=== PATIENT | male | born 1930 | race Caucasian/White ===

== ENCOUNTER → 2016-03-06 | Outpatient (CLI) | payer MEDICARE, BC ==
--- NOTE | 2016-03-06 13:33 | US ---
EXAMINATION TYPE: US carotid duplex BILAT DATE OF EXAM: 03/06/2016 12:57 PM COMPARISON: NONE CLINICAL HISTORY: I63.9 Cerebral infarction. left sided weakness EXAM MEASUREMENTS: RIGHT: Peak Systolic Velocity (PSV) cm/sec ----- Right CCA: 93.8 ----- Right ICA: 90.1 ----- Right ECA: 94.2 ICA/CCA ratio: 0.9 RIGHT: End Diastole cm/sec ----- Right CCA: 16.8 ----- Right ICA: 21.7 ----- Right ECA: 9.18 LEFT: Peak Systolic Velocity (PSV) cm/sec ----- Left CCA: 92.6 ----- Left ICA: 112 ----- Left ECA: 87.0 ICA/CCA ratio: 1.2 LEFT: End Diastole cm/sec ----- Left CCA: 23.0 ----- Left ICA: 31.7 ----- Left ECA: 15.5 VERTEBRALS (direction of flow): Right Vertebral: Antegrade Left Vertebral: Antegrade TECHNOLOGIST IMPRESSION: Mild/moderate plaque noted bilateral bifurcations. No increased velocities. No significant stenosis IMPRESSION: 1. Intimal thickening is some atheromatous plaquing. Significant flow-limiting stenosis is not identi fied. Criteria for Assigning % of Stenosis / Diameter reduction (Estimation based on the indirect measurements of the internal carotid artery velocities (ICA PSV). 1. Normal (no stenosis)=ICA PSV < 125 cm/s: ratio < 2.0: ICA EDV<40 cm/s. 2. Less than 50% stenosis=ICA PSV < 125 cm/s: ratio < 2.0: ICA EDV<40 cm/s. 3. 50 to 69% stenosis=ICA PSV of 125 to 230 cm/s: ration 2.0 ? 4.0: ICA EDV 40-100 cm/s. 4. Greater than 70% stenosis to near occlusion= ICA PSV > 230 cm/s: ratio > 4.0: ICA EDV > 100 cm/s. 5. Near occlusion= ICA PSV velocities may be low or undetectable: variable ratio and ICA EDV. 6. Total occlusion=unable to detect flow.
== END | disposition home or self-care (01) ==
LOC: RADUSWWP 12:15
PROVIDERS: ATTEND Family Medicine
DX: I65.23 Occlusion and stenosis of bilateral carotid arteries (principal)
CPT/HCPCS: 93880

== ENCOUNTER 2016-03-07 14:43 | Inpatient (IN) | payer MEDICARE, BC ==
[2016-03-07 16:09] LABS: Glucose,Whole Blood 87 mg/dL (75-99)
--- NOTE | 2016-03-07 16:25 | ED ---
Weakness HPI - General Chief complaint: Weakness Stated complaint: TIA Symptoms. Sent by Dr Quintana Seen by Provider: 03/07/16 15:50 Source: patient, family, RN/MD, RN notes reviewed Mode of arrival: wheelchair - History of Present Illness Initial comments: This is a 86-year-old male with a history of lumbar surgery in January this past year also a recent cholecystectomy who was sent in for evaluation for left upper and lower extremity weakness which has been going on for up to 23 weeks. He denies any trauma fevers chills nausea vomiting sweats just a focal weakness. It was believed that he may have had a stroke. MD Complaint: focal weakness - Related Data Home Medications Medication Instructions Recorded Confirmed Gluc/Kt-MSM#1/C/Francisco/Adrian/Bor 1 tab PO BID 01/15/16 03/07/16 [Glucosamine-Chondroitin Tablet] L.acidoph,Paracasei, B.lactis 1 cap PO DAILY 01/15/16 03/07/16 [Probiotic] amLODIPine BESYLATE/BENAZEPRIL 1 cap PO BID 01/15/16 03/07/16 [Lotrel 5-10 mg Capsule] Acetaminophen Tab [Tylenol Tab] 1,000 mg PO BID PRN 03/07/16 03/07/16 Fish Oil/Dha/Epa [Fish Oil 1,200 1 cap PO DAILY 03/07/16 03/07/16 mg Fish Oil] Multivitamin [Men's Multi-Vitamin] 1 tab PO DAILY 03/07/16 03/07/16 Muscle Relaxer 1 tab PO HS PRN 03/07/16 03/07/16 Polyethylene Glycol 3350 [Miralax] 17 gm PO DAILY PRN 03/07/16 03/07/16 Previous Rx's Medication Instructions Recorded Melatonin 3 mg PO HS tablet 01/18/16 Allergies Allergy/AdvReac Type Severity Reaction Status Date / Time aspirin AdvReac Severe Unknown Verified 03/07/16 16:26 Review of Systems ROS Statement: Those systems with pertinent positive or pertinent negative responses have been documented in the HPI. ROS Other: All systems not noted in ROS Statement are negative. Past Medical History Past Medical History: Atrial Fibrillation, Cancer, Hypertension Additional Past Medical History / Comment(s): prostate cancer History of Any Multi-Drug Resistant Organisms: None Reported Past Surgical History: Back Surgery, Cholecystectomy, Hernia Repair, Orthopedic Surgery, Prostate Surgery Additional Past Surgical History / Comment(s): knee replacement, strangulated hernia repair, prostatectomy. laminectomy Past Anesthesia/Blood Transfusion Reactions: No Reported Reaction Past Psychological History: No Psychological Hx Reported Smoking Status: Never smoker Past Alcohol Use History: None Reported Past Drug Use History: None Reported General Exam - General Exam Comments Initial Comments: This is a well-developed well-nourished awake alert oriented 3 male Limitations: physical limitation General appearance: alert, in no apparent distress Head exam: Present: atraumatic, normocephalic, normal inspection Eye exam: Present: normal appearance, PERRL, EOMI. Absent: scleral icterus, conjunctival injection, periorbital swelling ENT exam: Present: normal exam, mucous membranes moist Neck exam: Present: normal inspection, other (No stridor JVD or bruits). Absent : tenderness, meningismus, lymphadenopathy Respiratory exam: Present: normal lung sounds bilaterally. Absent: respiratory distress, wheezes, rales, rhonchi, stridor Cardiovascular Exam: Present: regular rate, normal rhythm, normal heart sounds. Absent: systolic murmur, diastolic murmur, rubs, gallop, clicks GI/Abdominal exam: Present: soft, normal bowel sounds. Absent: distended, tenderness, guarding, rebound, rigid, bruit, pulsatile mass, hernia Rectal exam: Present: deferred Extremities exam: Present: normal inspection, normal capillary refill. Absent: full ROM, tenderness Back exam: Absent: tenderness, CVA tenderness (R), CVA tenderness (L) Neurological exam: Present: alert, oriented X3, CN II-XII intact, motor sensory deficit Psychiatric exam: Present: normal affect, normal mood Skin exam: Present: warm, dry, intact, normal color. Absent: rash Course Vital Signs 03/07/16 03/07/16 03/07/16 14:52 15:35 15:50 Temperature 96.9 F L Pulse Rate 69 68 66 Respiratory 18 20 20 Rate Blood Pressure 152/71 143/75 159/76 O2 Sat by Pulse 98 98 99 Oximetry EKG Findings - EKG Results: EKG: interpreted by ROSE, sinus rhythm (Sinus rhythm rate is 63 WA interval 264 QRS duration 162/QTC of 14/119 unifocal PVC is noted. Soom sinus arrhythmia first-degree AV block is noted) Medical Decision Making - Medical Decision Making I did discuss findings with patient family patient be admitted with consultation by neurology. The patient is not a candidate for TPA or interventional neurology at this time due to the remoteness of the onset of symptoms. - Lab Data Result diagrams: 03/07/16 16:10 Lab Results 03/07/16 03/07/16 03/07/16 Range/Units 16:07 16:10 16:10 WBC 7.6 (3.8-10.6) k/uL RBC 4.92 (4.30-5.90) m/uL Hgb 14.8 (13.0-17.5) gm/dL Hct 44.1 (39.0-53.0) % MCV 89.6 (80.0-100.0) fL MCH 30.2 (25.0-35.0) pg MCHC 33.7 (31.0-37.0) g/dL RDW 14.3 (11.5-15.5) % Plt Count 232 (150-450) k/uL Neutrophils % 69 % Lymphocytes % 22 % Monocytes % 6 % Eosinophils % 2 % Basophils % 1 % Neutrophils # 5.2 (1.3-7.7) k/uL Lymphocytes # 1.6 (1.0-4.8) k/uL Monocytes # 0.4 (0-1.0) k/uL Eosinophils # 0.2 (0-0.7) k/uL Basophils # 0.1 (0-0.2) k/uL PT (9.0-12.0) sec INR (<1.1) APTT (22.0-30.0) sec POC Glucose (mg/dL) 87 (75-99) mg/dL POC Glu Graduate Intern ID Peggy Rios Total Creatine Kinase 47 L (55-170) U/L CK-MB (CK-2) 1.5 (0.0-2.4) ng/mL CK-MB (CK-2) Rel Index 3.2 Troponin I <0.012 (0.000-0.034) ng/mL 03/07/16 Range/Units 16:10 WBC (3.8-10.6) k/uL RBC (4.30-5.90) m/uL Hgb (13.0-17.5) gm/dL Hct (39.0-53.0) % MCV (80.0-100.0) fL MCH (25.0-35.0) pg MCHC (31.0-37.0) g/dL RDW (11.5-15.5) % Plt Count (150-450) k/uL Neutrophils % % Lymphocytes % % Monocytes % % Eosinophils % % Basophils % % Neutrophils # (1.3-7.7) k/uL Lymphocytes # (1.0-4.8) k/uL Monocytes # (0-1.0) k/uL Eosinophils # (0-0.7) k/uL Basophils # (0-0.2) k/uL PT 10.8 (9.0-12.0) sec INR 1.1 (<1.1) APTT 24.9 (22.0-30.0) sec POC Glucose (mg/dL) (75-99) mg/dL POC Glu Graduate Intern ID Total Creatine Kinase (55-170) U/L CK-MB (CK-2) (0.0-2.4) ng/mL CK-MB (CK-2) Rel Index Troponin I (0.000-0.034) ng/mL - Radiology Data Radiology results: report reviewed (I did review the imaging and report evidence of a likely subacute vascular insult the right frontal lobe.), image reviewed Disposition Clinical Impression: CVA (cerebral vascular accident) Disposition: ADMITTED IP TO THIS HOSP Condition: Stable
[2016-03-07 16:28] LABS: Basophils # (A) 0.1 k/uL (0-0.2); Basophils % (A) 1 %; CH 30.3; Eosinophils # (A) 0.2 k/uL (0-0.7); Eosinophils % (A) 2 %; HCT 44.1 % (39.0-53.0); HDW 2.56; HGB 14.8 gm/dL (13.0-17.5); Luc # (Auto) 0.07; Luc % (Auto) 1; Lymphocytes # (A) 1.6 k/uL (1.0-4.8); Lymphocytes % (A) 22 %; MCH 30.2 pg (25.0-35.0); MCHC 33.7 g/dL (31.0-37.0); MCV 89.6 fL (80.0-100.0); Mean Platelet Volume 8.7; Monocytes # (A) 0.4 k/uL (0-1.0); Monocytes % (A) 6 %; Neutrophils # (A) 5.2 k/uL (1.3-7.7); Neutrophils % (A) 69 %; RBC 4.92 m/uL (4.30-5.90); RDW 14.3 % (11.5-15.5); WBC 7.6 k/uL (3.8-10.6)
[2016-03-07 16:38] LABS: INR 1.1 (<1.1); Partial Thromboplastin Time 24.9 sec (22.0-30.0); Prothrombin Time 10.8 sec (9.0-12.0)
[2016-03-07 16:42] LABS: Creatine Kinase 47 U/L (55-170)
--- NOTE | 2016-03-07 16:51 | CT ---
EXAMINATION TYPE: CT brain wo con DATE OF EXAM: 03/07/2016 4:40 PM COMPARISON: NONE HISTORY: 86-year-old male with generalized weakness TECHNIQUE: Examination was done in axial plane without intravenous contrast. Coronal and sagittal reconstructio ns performed. CT DLP: 1505.6 mGycm Automated exposure control for dose reduction was used. FINDINGS: There is mild generalized supratentorial volume loss. Prominent subcortical white matter hypodensity in the right frontal lobe. While this is a chronic appearance, there is slight asymmetric fullness of the right frontal gyri, for example, axial image 44. No cortical hypodensity is seen. Mild patchy pe riventricular white matter hypodensities suggest chronic small vessel ischemic disease. No evidence for acute intracranial hemorrhage. No loss of shepherd-white matter differentiation. No effac ement of basal subarachnoid cisterns. No evidence for mass, extra-axial fluid collection, or midline shift. No hydrocephalus. Paranasal sinuses and mastoid air cells are well pneumatized. Orbits and globes are intact. IMPRESSION: Extensive subcortical white matter hypodensity in the right frontal lobe is suspected to be chronic r elating to prior white matter infarct. However, given asymmetric sulcal effacement in this region, a subacute vascular insult here is difficult to entirely exclude. Clinically correlate. No evidence for acute intracranial hemorrhage.
[2016-03-07 16:53] LABS: Creatine Kinase MB 1.5 ng/mL (0.0-2.4); Troponin I <0.012 ng/mL (0.000-0.034)
--- NOTE | 2016-03-07 16:53 | XR ---
EXAMINATION TYPE: XR chest 2V DATE OF EXAM: 03/07/2016 4:41 PM COMPARISON: None HISTORY: 86-year-old male increasing left leg weakness for 3 weeks TECHNIQUE: Frontal and lateral views FINDINGS: Heart is upper limits of normal in size. Atherosclerotic arch calcifications. There is thoracic defor mity due to a marked dextroconvex scoliosis centered along the lower thoracic spine. No consolidation or pleural effusion seen. IMPRESSION: Marked dextroconvex scoliosis causing some deformity to the thorax. No acute process seen.
[2016-03-07] MEDS ORDERED: ACETAMINOPHEN TAB 500 MG TAB PO PRN (17:11)
[2016-03-07 17:43] LABS: ALT 33 U/L (21-72); AST 39 U/L (17-59); Alkaline Phosphatase 71 U/L (38-126); Anion Gap 11 mmol/L; Blood Urea Nitrogen 11 mg/dL (9-20); Calcium 9.7 mg/dL (8.4-10.2); Carbon Dioxide 25 mmol/L (22-30); Chloride 100 mmol/L (98-107); Glucose 91 mg/dL (74-99); Magnesium 2.1 mg/dL (1.6-2.3); Non-African American GFR(MDRD) >60 (>60 ml/min/1.73 sqM); Sodium 136 mmol/L (137-145); Total Bilirubin 1.1 mg/dL (0.2-1.3); Total Protein 7.5 g/dL (6.3-8.2)
[2016-03-07 17:46] LABS: Potassium 5.5 mmol/L (3.5-5.1)
[2016-03-07 17:48] LABS: Appearance,Urine Clear (Clear); Bilirubin,Urine Negative (Negative); Glucose,Urine (UA) Negative (Negative); Ketones,Urine Negative (Negative); Leukocyte Esterase,Urine Negative (Negative); Nitrite,Urine Negative (Negative); Protein,Urine Negative (Negative); Specific Gravity,Urine 1.004 (1.001-1.035); UA Billing (MACRO vs. MICRO) CHEM; Urobilinogen,Urine <2.0 mg/dL (<2.0)
[2016-03-07 21:08] VITALS: BMI 21.8
[2016-03-07] MEDS: LISINOPRIL 10 MG TAB PO SCH (21:18)
[2016-03-07] MEDS: MELATONIN 3 MG TABLET PO SCH (21:18)
[2016-03-07] MEDS: amLODIPine 5 MG TAB PO SCH (21:18)
[2016-03-07] MEDS: SODIUM CHLORIDE 0.9% 1,000 ML IV SCH (21:49)
[2016-03-08] MEDS: SODIUM CHLORIDE 0.9% 1,000 ML IV SCH ×3 (05:48→23:57)
[2016-03-08 06:46] LABS: Anion Gap 9 mmol/L; Blood Urea Nitrogen 9 mg/dL (9-20); Calcium 9.1 mg/dL (8.4-10.2); Carbon Dioxide 30 mmol/L (22-30); Chloride 101 mmol/L (98-107); Glucose 84 mg/dL (74-99); Non-African American GFR(MDRD) >60 (>60 ml/min/1.73 sqM); Potassium 4.1 mmol/L (3.5-5.1); Sodium 140 mmol/L (137-145)
[2016-03-08] MEDS ORDERED: NON-FORMULARY DRUG (Fish Oil/Dha/Epa [Fish Oil 1,200 Mg Fish Oil] 1 CAP) PO SCH (09:00)
[2016-03-08] MEDS: amLODIPine 5 MG TAB PO SCH ×2 (09:17→21:02)
[2016-03-08] MEDS: LISINOPRIL 10 MG TAB PO SCH ×2 (09:17→21:02)
[2016-03-08] MEDS: MULTIVITAMINS, THERA 1 EACH TAB PO SCH (09:17)
[2016-03-08] MEDS: POLYETHYLENE GLYCOL 3350 17 GM POWD.PACK PO PRN (09:38)
--- NOTE | 2016-03-08 11:46 | P.HPIM ---
History of Present Illness 86-year-old male was admitted with left-sided weakness onset 2-3 weeks ago. Patient had a recent lumbar laminectomy. Neurosurgeon noted left-sided weakness. Patient had a carotid studies done and shown to have no significant stenosis . Attempted MRI patient unable to be stabilized for MRI from kyphosis. CT the brain showed subacute vascular insult to the front lobe. Patient is awake and alert noted left arm left leg weakness positive drifts to left arm significant left leg weakness. Patient noted have lower extremity edema on venous Doppler will be ordered. 2-D echo ordered Review of Systems Ears, nose, mouth and throat: Reports sinus pressure Neurological: Reports weakness Past Medical History Past Medical History: Atrial Fibrillation, Cancer, Hypertension Additional Past Medical History / Comment(s): prostate cancer History of Any Multi-Drug Resistant Organisms: None Reported Past Surgical History: Back Surgery, Cholecystectomy, Hernia Repair, Orthopedic Surgery, Prostate Surgery Additional Past Surgical History / Comment(s): knee replacement, strangulated hernia repair, prostatectomy. laminectomy Past Anesthesia/Blood Transfusion Reactions: No Reported Reaction Past Psychological History: No Psychological Hx Reported Smoking Status: Never smoker Past Alcohol Use History: None Reported Past Drug Use History: None Reported Medications and Allergies Home Medications Medication Instructions Recorded Confirmed Type Gluc/Kt-MSM#1/C/Francisco/Adrian/Bor 1 tab PO BID 01/15/16 03/07/16 History [Glucosamine-Chondroitin Tablet] L.acidoph,Paracasei, B.lactis 1 cap PO DAILY 01/15/16 03/07/16 History [Probiotic] amLODIPine BESYLATE/BENAZEPRIL 1 cap PO BID 01/15/16 03/07/16 History [Lotrel 5-10 mg Capsule] Acetaminophen Tab [Tylenol Tab] 1,000 mg PO BID PRN 03/07/16 03/07/16 History Fish Oil/Dha/Epa [Fish Oil 1,200 1 cap PO DAILY 03/07/16 03/07/16 History mg Fish Oil] Multivitamin [Men's Multi-Vitamin] 1 tab PO DAILY 03/07/16 03/07/16 History Muscle Relaxer 1 tab PO HS PRN 03/07/16 03/07/16 History Polyethylene Glycol 3350 [Miralax] 17 gm PO DAILY PRN 03/07/16 03/07/16 History Allergies Allergy/AdvReac Type Severity Reaction Status Date / Time aspirin AdvReac Severe Unknown Verified 03/07/16 16:26 Physical Exam Vitals: Vital Signs Temp Pulse Pulse Resp BP BP Pulse Ox 03/08/16 09:38 97.2 F L 72 16 126/76 97 03/08/16 04:00 97.2 F L 63 17 134/70 97 03/08/16 00:00 97.1 F L 56 L 16 108/57 03/07/16 19:10 140/72 03/07/16 18:49 97.0 F L 73 18 178/86 97 03/07/16 18:39 98.0 F 76 18 158/94 98 03/07/16 18:19 71 143/83 99 03/07/16 17:19 62 16 170/76 Intake and Output 03/07/16 03/08/16 03/08/16 22:59 06:59 14:59 Intake Total 1600 Output Total 600 650 Balance -600 950 Intake: IV 800 Sodium Chloride 0.9% 1, 800 000 ml @ 100 mls/hr IV . Q10H ANA Rx#:[id number] Intake, IV Titration 800 Amount Sodium Chloride 0.9% 1, 800 000 ml @ 100 mls/hr IV . Q10H ANA Rx#:[id number] Output: Urine 600 650 Other: Voiding Method Urinal Urinal # Voids 2 Weight 75 kg 78.4 kg - Constitutional General appearance: average body habitus - EENT Eyes: PERRLA Ears: bilateral: normal - Neck Neck: normal ROM - Respiratory Respiratory: bilateral: CTA - Cardiovascular Rhythm: regular Abnormal Heart Sounds: systolic murmur leg Peripheral Edema: bilateral: 2+ - Gastrointestinal General gastrointestinal: soft - Integumentary Integumentary: normal - Neurologic Neurologic: CNII-XII intact - Musculoskeletal Musculoskeletal: left sided weakness - Psychiatric Psychiatric: A&O x's 3, appropriate affect, intact judgment & insight Results CBC & Chem 7: 03/07/16 16:10 03/08/16 05:59 Chest x-ray: report reviewed CT Scan - head: report reviewed Thrombosis Risk Factor Assmnt - Choose All That Apply Each Risk Factor Represents 3 Points: Age 75 years or older Other congenital or acquired thrombophilia - If yes, enter type in comment: No Thrombosis Risk Factor Assessment Total Risk Factor Score: 3 Thrombosis Risk Factor Assessment Level: Moderate Risk Assessment and Plan Plan: Assessment Subacute vascular insult right frontal lobe CVA Recent of lumbar laminectomy Recent cholecystectomy Left-sided weakness Leg edema History of atrial fib and first-degree AV block at this time History of prostate cancer Hypertension History of ulceration with aspirin use Plan Consultation with neurology 2-D echo and venous Doppler studies ordered
--- NOTE | 2016-03-08 11:55 | ECHOF ---
Referral Reason:cva MEASUREMENTS -------- HEIGHT: 185.4 cm WEIGHT: 78.0 kg BP: 134/70 RVIDd: 3.6 cm (< 3.3) IVSd: 1.3 cm (0.6 - 1.1) LVIDd: 3.5 cm (3.9 - 5.3) LVPWd: 1.2 cm (0.6 - 1.1) IVSs: 2.1 cm LVIDs: 2.5 cm LVPWs: 2.3 cm LA Diam: 3.8 cm (2.7 - 3.8) LAESV Index (A-L): 50.97 ml/m Ao Diam: 3.7 cm (2.0 - 3.7) AV Cusp: 1.0 cm (1.5 - 2.6) LA Diam: 3.5 cm (2.7 - 3.8) MV EXCURSION: 9.957 mm (> 18.000) MV EF SLOPE: 33 mm/s (70 - 150) EPSS: 1.4 cm MV E Chip: 0.71 m/s MV DecT: 312 ms MV A Chip: 0.94 m/s MV E/A Ratio: 0.76 RAP: 5.00 mmHg RVSP: 28.38 mmHg FINDINGS -------- Resting bradycardia (HR<60bpm). This was a technically good study. There is mild concentric left ventricular hypertrophy. Overall left ventricular systolic function is normal with, an EF between 55 - 60 %. The right ventricle is mildly enlarged. LA is severely dilated >40 ml/m2 The right atrium is normal in size. Aneurysmal Interatrial septum. Aortic valve is trileaflet and is moderately thickened. The mitral valve leaflets are mildly thickened. Mild mitral annular calcification present. Mild mitral regurgitation is present. Mild tricuspid regurgitation present. Right ventricular systolic pressure is normal at < 35 mmHg. The pulmonic valve was not well visualized. The aortic root size is normal. Normal inferior vena cava with normal inspiratory collapse consistent with estimated right atrial pressure of 5 mmHg. There is no pericardial effusion. CONCLUSIONS -------- 1. Resting bradycardia (HR<60bpm). 2. The mitral valve leaflets are mildly thickened. 3. Mild mitral annular calcification present. 4. Mild mitral regurgitation is present. 5. Mild tricuspid regurgitation present. 6. Right ventricular systolic pressure is normal at < 35 mmHg. 7. The pulmonic valve was not well visualized. 8. The aortic root size is normal. 9. There is no pericardial effusion. 10. This was a technically good study. 11. There is mild concentric left ventricular hypertrophy. 12. Overall left ventricular systolic function is normal with, an EF between 55 - 60 %. 13. The right ventricle is mildly enlarged. 14. LA is severely dilated >40 ml/m2 15. The right atrium is normal in size. 16. Aneurysmal Interatrial septum. 17. Aortic valve is trileaflet and is moderately thickened. OFFICE ADMINISTRATIVE ASSISTANT: Milla Sharpe RDCS
--- NOTE | 2016-03-08 13:48 | US ---
EXAMINATION TYPE: US venous doppler duplex LE DATE OF EXAM: 03/08/2016 1:16 PM COMPARISON: NONE CLINICAL HISTORY: leg edema cva. Leg swelling, left side weakness SIDE PERFORMED: Bilateral VESSELS IMAGED: External Iliac Vein (EIV) Common Femoral Vein Deep Femoral Vein Greater Saphenous Vein * Femoral Vein Popliteal Vein Small Saphenous Vein * Proximal Calf Veins (* superficial vessels) Spontaneous flow and normal compressibility seen bilaterally. IMPRESSION: 1. No diagnostic evidence of DVT
[2016-03-08] MEDS: MELATONIN 3 MG TABLET PO SCH (21:02)
[2016-03-08] MEDS: PANTOPRAZOLE 40 MG TABLET PO SCH (21:02)
--- NOTE | 2016-03-08 21:28 | CONS ---
DATE OF CONSULTATION: 03/08/2016 CHIEF COMPLAINT: Stroke. HISTORY OF PRESENT ILLNESS: Mr. Whitman is a pleasant, 86-year-old male who is being evaluated by the neurology service per the request of Dr. Elio Jurado for a stroke. The patient was brought into [facility] emergency room with complaints of left-sided weakness. His symptoms began approximately 2 weeks ago but he did not seek any immediate medical attention. The patient noticed that he was having difficulty ambulating and felt that his left arm is heavier than his right arm. The patient is not on any antiplatelet medications at home. HE REPORTS AN ALLERGY TO ASPIRIN. A stat CT scan of the brain was done in the emergency room which showed evidence of hypoattenuation involving the right frontal lobe. An MRI of the brain was attempted, but the patient was unable to perform the test due to kyphosis and scoliosis. His CBC, urinalysis and cardiac enzymes were normal. His comprehensive metabolic profile showed hyperkalemia at 5.5. A repeat potassium level earlier today was normal. He did have a carotid Doppler recently, which showed no hemodynamically significant stenosis. At the time of my evaluation, the patient is lying in his bed and appears to be in no acute distress. He is still complaining of some left-sided weakness that he has improved according to him. PAST MEDICAL HISTORY: Paroxysmal atrial fibrillation, hypertension, prostate cancer, history of lumbar spine surgery with laminectomy, cholecystectomy, hernia repair, orthopedic surgeries, prostate surgery. SOCIAL HISTORY: He denies any tobacco, alcohol or drug use. FAMILY HISTORY: Noncontributory. HOME MEDICATIONS: Reviewed in the chart. ALLERGIES: ASPIRIN. REVIEW OF SYSTEMS: CONSTITUTIONAL: Positive for fatigue. EYES: Negative. ENT: Positive for chronic diminished hearing. CARDIOVASCULAR: Positive for history of atrial fibrillation. RESPIRATORY: Negative. NEUROLOGICAL: As mentioned above. GASTROINTESTINAL: Positive for occasional abdominal pain. GENITOURINARY: Positive for occasional urinary retention. MUSCULOSKELETAL: Positive for frequent joint pain. PSYCHIATRIC: Negative. ENDOCRINE: Negative. Dermatological: Negative. PHYSICAL EXAM: Vital signs show a temperature of 97.2, pulse 61, respirations 16, blood pressure 117/68. GENERAL APPEARANCE: The patient is a thin, elderly male who appears to be in no acute distress. HEENT: Normocephalic, atraumatic, no facial asymmetry is seen. Extraocular muscles are intact. Neck is supple with no masses felt. CARDIOVASCULAR: Regular rate and rhythm. Abdomen showed mild tenderness to palpation in the left upper quadrant. No distention is seen. EXTREMITIES: No edema or clubbing. NEUROLOGICAL EXAM: The patient is alert, aware, and oriented x 3. Speech and language are normal. Strength is 5-/5 on the left and 5 out of 5 on the right. Mild left pronator drift is seen. Dysdiadochokinesia is noticed on the left upper extremity compared to the right. Sensory exam was normal to light touch in all 4 extremities. No facial asymmetry is noticed on cranial nerve testing. No tremors or seizure-like activity is seen. IMPRESSION: 1. Acute ischemic stroke, right frontal lobe. 2. Left hemiparesis. 3. History of atrial fibrillation. 4. Hypertension. RECOMMENDATIONS: The patient does appear to have suffered an acute ischemic stroke involving the right frontal lobe. He is still having mild left hemiparesis and this has improved. I discussed with the patient the need to be on antiplatelet therapy. He does have an ASPIRIN ALLERGY. I will start him on Plavix 75 mg daily. His carotid Doppler showed no hemodynamically significant stenosis. I will start him on Lovenox for DVT prophylaxis and Protonix for GI prophylaxis. Physical therapy is following patient. I will order a fasting lipid panel, EEG and serum homocysteine level. Continue neuro checks. I will continue to follow with you. Further recommendations to follow. Thank you, Dr. Jurado, for allowing me to participate in the care of your patient. If you have any questions, please feel free to contact me.
[2016-03-09 05:12] VITALS: RESP 18
[2016-03-09] MEDS: PANTOPRAZOLE 40 MG TABLET PO SCH ×2 (06:23→16:58)
[2016-03-09 06:48] LABS: Cholesterol 132 mg/dL (<200); HDL Cholesterol 55 mg/dL (40-60); Triglycerides 72 mg/dL (<150)
[2016-03-09] MEDS: CLOPIDOGREL 75 MG TAB PO SCH (09:25)
[2016-03-09] MEDS: ENOXAPARIN 40 MG/0.4 ML SYRINGE SQ SCH (09:25)
[2016-03-09] MEDS: amLODIPine 5 MG TAB PO SCH ×2 (09:25→21:45)
[2016-03-09] MEDS: LISINOPRIL 10 MG TAB PO SCH ×2 (09:25→21:45)
[2016-03-09] MEDS: MULTIVITAMINS, THERA 1 EACH TAB PO SCH (09:26)
[2016-03-09] MEDS: SODIUM CHLORIDE 0.9% 1,000 ML IV SCH (09:28)
--- NOTE | 2016-03-09 12:05 | P.CRDCN ---
<Elizabeth Gonzalez E - Last Filed: 03/09/16 11:51> History of Present Illness Consult date: 03/09/16 Requesting physician: Elio Jurado Reason for Consult (text): CVA Chief complaint: Left-sided weakness History of present illness: This is a pleasant 86-year-old gentleman who is a retired architectural associate, he presented to the hospital with symptoms of a left-sided weakness in both his arm and his leg. He states that he initially noticed the symptoms 2-3 weeks ago. He also had one day where he experienced expressive aphasia. Patient had undergone lumbar spine surgery with laminectomy and felt that some of these symptoms may be secondary to that. So for this reason he didn't seek immediate medical attention. CAT scan of the brain was done in the emergency room which did show evidence of hypoattenuation involving the right frontal lobe. An MRI of the brain was attempted but patient was unable to perform the test because of kyphosis and scoliosis. Patient does have an ALLERGY to aspirin, he was initiated on Plavix by nephrology. According to the patient, he does have history of hypertension, paroxysmal atrial fibrillation, however he has never been on anticoagulation in the past. EKG shows sinus bradycardia with first- degree AV block and occasional PAC and PVC. CBC normal. Potassium on admission 5.5, 4.1 this morning. BUN 9, creatinine 0.7. Troponin 0.012. Venous duplex study negative for DVT. At the time of my examination patient left-sided weakness, he does not have any speech difficulties, no difficulty with his vision. Past Medical History Past Medical History: Atrial Fibrillation, Cancer, Hypertension Additional Past Medical History / Comment(s): prostate cancer History of Any Multi-Drug Resistant Organisms: None Reported Past Surgical History: Back Surgery, Cholecystectomy, Hernia Repair, Orthopedic Surgery, Prostate Surgery Additional Past Surgical History / Comment(s): knee replacement, strangulated hernia repair, prostatectomy. laminectomy Past Anesthesia/Blood Transfusion Reactions: No Reported Reaction Past Psychological History: No Psychological Hx Reported Smoking Status: Never smoker Past Alcohol Use History: None Reported Past Drug Use History: None Reported Medications and Allergies Home Medications Medication Instructions Recorded Confirmed Type Gluc/Kt-MSM#1/C/Francisco/Adrian/Bor 1 tab PO BID 01/15/16 03/07/16 History [Glucosamine-Chondroitin Tablet] L.acidoph,Paracasei, B.lactis 1 cap PO DAILY 01/15/16 03/07/16 History [Probiotic] amLODIPine BESYLATE/BENAZEPRIL 1 cap PO BID 01/15/16 03/07/16 History [Lotrel 5-10 mg Capsule] Acetaminophen Tab [Tylenol Tab] 1,000 mg PO BID PRN 03/07/16 03/07/16 History Fish Oil/Dha/Epa [Fish Oil 1,200 1 cap PO DAILY 03/07/16 03/07/16 History mg Fish Oil] Multivitamin [Men's Multi-Vitamin] 1 tab PO DAILY 03/07/16 03/07/16 History Muscle Relaxer 1 tab PO HS PRN 03/07/16 03/07/16 History Polyethylene Glycol 3350 [Miralax] 17 gm PO DAILY PRN 03/07/16 03/07/16 History Allergies Allergy/AdvReac Type Severity Reaction Status Date / Time aspirin AdvReac Severe Unknown Verified 03/07/16 16:26 Physical Exam Vitals: Vital Signs Temp Pulse Resp BP Pulse Ox 03/09/16 08:00 97 F L 75 18 165/84 97 03/09/16 04:00 97.3 F L 57 L 18 119/64 94 L 03/09/16 00:00 97.1 F L 54 L 17 130/65 97 03/08/16 20:00 97.1 F L 71 16 148/72 98 03/08/16 18:19 70 17 122/72 97 03/08/16 12:15 61 16 117/68 96 Intake and Output 03/08/16 03/09/16 03/09/16 22:59 06:59 14:59 Intake Total 1700 380 Output Total 1100 100 251 Balance 600 -100 129 Intake: IV 1200 200 Sodium Chloride 0.9% 1, 1200 200 000 ml @ 100 mls/hr IV . Q10H ANA Rx#:[id number] Oral 500 180 Output: Urine 1100 100 250 Stool 1 Other: Voiding Method Urinal Urinal # Voids 1 # Bowel Movements 1 2 Weight 78.9 kg PHYSICAL EXAMINATION: HEENT: Head is atraumatic, normocephalic. Pupils equal, round. Neck is supple. There is no elevated jugular venous pressure. HEART EXAMINATION: Heart S1 and S2 systolic murmur is heard. CHEST EXAMINATION: Lungs are clear to auscultation and precussion. No chest wall tenderness is noted on palpation or with deep breathing. ABDOMEN: Soft, nontender. Bowel sounds are heard. No organomegaly noted. EXTREMITIES: 2+ peripheral pulses with no evidence of peripheral edema and no calf tenderness noted. Positive weakness in the left arm and left leg noted as compared with the right. NEUROLOGIC patient is awake, alert and oriented -3. . Results 03/07/16 16:10 03/08/16 05:59 Lipids 03/09/16 Range/Units 06:08 Triglycerides 72 (<150) mg/dL Cholesterol 132 (<200) mg/dL HDL Cholesterol 55 (40-60) mg/dL Current Medications Generic Name Dose Route Start Last Admin Trade Name Freq PRN Reason Stop Dose Admin Acetaminophen 1,000 mg 03/07/16 17:11 Tylenol Tab PO BID PRN Pain Amlodipine Besylate 5 mg 03/07/16 21:00 03/09/16 09:25 Norvasc PO 5 mg BID ANA Administration Clopidogrel Bisulfate 75 mg 03/09/16 09:00 03/09/16 09:25 Plavix PO 75 mg DAILY ANA Administration Enoxaparin Sodium 40 mg 03/09/16 09:00 03/09/16 09:25 Lovenox SQ 40 mg DAILY ANA Administration Sodium Chloride 1,000 mls @ 100 mls/hr 03/07/16 17:15 03/09/16 09:28 Saline 0.9% IV Not Given .Q10H ANA Lisinopril 10 mg 03/07/16 21:00 03/09/16 09:25 Zestril PO 10 mg BID ANA Administration Melatonin 3 mg 03/07/16 21:00 03/08/16 21:02 Melatonin PO 3 mg HS ANA Administration Multivitamins 1 each 03/08/16 12:00 03/09/16 09:26 Theragran PO 1 each DAILY@1200 ANA Administration Pantoprazole Sodium 40 mg 03/08/16 19:45 03/09/16 06:23 Protonix PO 40 mg AC-BID ANA Administration Polyethylene Glycol 17 gm 03/07/16 17:11 03/08/16 09:38 Miralax PO 17 gm DAILY PRN Administration BOWELS Intake and Output 03/08/16 03/09/16 03/09/16 22:59 06:59 14:59 Intake Total 1700 380 Output Total 1100 100 251 Balance 600 -100 129 Intake: IV 1200 200 Sodium Chloride 0.9% 1, 1200 200 000 ml @ 100 mls/hr IV . 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 #2 history of paroxysmal atrial fibrillation #3 hypertension Plan We will attempt to get prior records of the patient's old EKGs to see if there is any documentation of atrial fibrillation. It was explained to the patient, that if he is having paroxysmal A. fib that he may need to be on anticoagulation in the form of Coumadin or one of the newer agents. At this time, he is currently on Plavix as per neurology. We will also initiate a statin on the patient. A cardiogram with Doppler study was performed which revealed an overall left ventricular systolic function evident ejection fraction 55-60%. 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 Aortic valve is trileaflet and is moderately thickened. Further recommendations to follow. DNP note has been reviewed, I agree with a documented findings and plan of care. Patient was seen and examined. <Carlos Enrique Morocho - Last Filed: 03/09/16 12:28> Physical Exam Vitals: Vital Signs Temp Pulse Resp BP Pulse Ox 03/09/16 08:00 97 F L 75 18 165/84 97 03/09/16 04:00 97.3 F L 57 L 18 119/64 94 L 03/09/16 00:00 97.1 F L 54 L 17 130/65 97 03/08/16 20:00 97.1 F L 71 16 148/72 98 03/08/16 18:19 70 17 122/72 97 Intake and Output 03/08/16 03/09/16 03/09/16 22:59 06:59 14:59 Intake Total 1700 380 Output Total 1100 100 251 Balance 600 -100 129 Intake: IV 1200 200 Sodium Chloride 0.9% 1, 1200 200 000 ml @ 100 mls/hr IV . Q10H ANA Rx#:[id number] Oral 500 180 Output: Urine 1100 100 250 Stool 1 Other: Voiding Method Urinal Urinal # Voids 1 # Bowel Movements 1 2 Weight 78.9 kg Results 03/07/16 16:10 03/08/16 05:59 Lipids 03/09/16 Range/Units 06:08 Triglycerides 72 (<150) mg/dL Cholesterol 132 (<200) mg/dL HDL Cholesterol 55 (40-60) mg/dL Current Medications Generic Name Dose Route Start Last Admin Trade Name Freq PRN Reason Stop Dose Admin Acetaminophen 1,000 mg 03/07/16 17:11 Tylenol Tab PO BID PRN Pain Amlodipine Besylate 5 mg 03/07/16 21:00 03/09/16 09:25 Norvasc PO 5 mg BID ANA Administration Atorvastatin Calcium 40 mg 03/09/16 12:15 Lipitor PO DAILY ANA Clopidogrel Bisulfate 75 mg 03/09/16 09:00 03/09/16 09:25 Plavix PO 75 mg DAILY ANA Administration Enoxaparin Sodium 40 mg 03/09/16 09:00 03/09/16 09:25 Lovenox SQ 40 mg DAILY ANA Administration Sodium Chloride 1,000 mls @ 100 mls/hr 03/07/16 17:15 03/09/16 09:28 Saline 0.9% IV Not Given .Q10H ANA Lisinopril 10 mg 03/07/16 21:00 03/09/16 09:25 Zestril PO 10 mg BID ANA Administration Melatonin 3 mg 03/07/16 21:00 03/08/16 21:02 Melatonin PO 3 mg HS ANA Administration Multivitamins 1 each 03/08/16 12:00 03/09/16 09:26 Theragran PO 1 each DAILY@1200 ANA Administration Pantoprazole Sodium 40 mg 03/08/16 19:45 03/09/16 06:23 Protonix PO 40 mg AC-BID ANA Administration Polyethylene Glycol 17 gm 03/07/16 17:11 03/08/16 09:38 Miralax PO 17 gm DAILY PRN Administration BOWELS Intake and Output 03/08/16 03/09/16 03/09/16 22:59 06:59 14:59 Intake Total 1700 380 Output Total 1100 100 251 Balance 600 -100 129 Intake: IV 1200 200 Sodium Chloride 0.9% 1, 1200 200 000 ml @ 100 mls/hr IV . Q10H [facility] Rx#:[id number] Oral 500 180 Output: Urine 1100 100 250 Stool 1 Other: Voiding Method Urinal Urinal # Voids 1 # Bowel Movements 1 2 Weight 78.9 kg 03/08/16 05:59
[2016-03-09] MEDS: ATORVASTATIN 40 MG TAB PO SCH (16:58)
--- NOTE | 2016-03-09 20:03 | P.PN ---
Subjective Patient resting comfortably in bed. at bedside. A slight improvement noted to left leg weakness. Patient continues of consultation with cardiology and neurology Objective - Vital Signs Vital signs: Vital Signs Temp 97.1 F L 03/09/16 16:00 Pulse 55 L 03/09/16 16:00 Resp 18 03/09/16 16:00 BP 138/64 03/09/16 16:00 Pulse Ox 96 03/09/16 16:00 Intake & Output 03/09/16 03/09/16 03/10/16 06:59 18:59 06:59 Intake Total 1800 Output Total 100 701 Balance -100 1099 Weight 78.9 kg Intake: IV 200 Sodium Chloride 0.9% 1, 200 000 ml @ 100 mls/hr IV . Q10H ANA Rx#:[id number] Intake, IV Titration 1000 Amount Sodium Chloride 0.9% 1, 1000 000 ml @ 100 mls/hr IV . Q10H ANA Rx#:[id number] Oral 600 Output: Urine 100 700 Stool 1 Other: Voiding Method Urinal # Voids 1 # Bowel Movements 2 - Constitutional General appearance: Present: average body habitus - EENT Eyes: Present: PERRLA Ears: bilateral: normal - Respiratory Respiratory: bilateral: CTA - Cardiovascular Rhythm: regular Abnormal Heart Sounds: Present: systolic murmur - Peripheral edema leg Peripheral Edema: bilateral: 2+ - Gastrointestinal General gastrointestinal: Present: soft Localized gastrointestinal: tender: epigastric periumbilical - Integumentary Integumentary: Present: normal - Neurologic Neurologic: Present: CNII-XII intact - Musculoskeletal Musculoskeletal: Present: left sided weakness - Psychiatric Psychiatric: Present: A&O x's 3, appropriate affect, intact judgment & insight - Labs CBC & Chem 7: 03/07/16 16:10 03/08/16 05:59 Assessment and Plan Plan: Vascular accident left-sided weakness acute vascular insult to right frontal lobe history of atrial fibrillation history of prostate cancer hypertension recent laminectomy recent cholecystectomy plan continue consultation with cardiology regarding abnormal echo continue consultation with neurology hopeful transfer back to [id number] for rehab
[2016-03-09] MEDS: MELATONIN 3 MG TABLET PO SCH (21:45)
[2016-03-10] MEDS: PANTOPRAZOLE 40 MG TABLET PO SCH (06:23)
[2016-03-10] MEDS: POLYETHYLENE GLYCOL 3350 17 GM POWD.PACK PO PRN (06:23)
[2016-03-10] MEDS: SODIUM CHLORIDE 0.9% 1,000 ML IV SCH (07:50)
[2016-03-10] MEDS: CLOPIDOGREL 75 MG TAB PO SCH (09:11)
[2016-03-10] MEDS: ENOXAPARIN 40 MG/0.4 ML SYRINGE SQ SCH (09:11)
[2016-03-10] MEDS: LISINOPRIL 10 MG TAB PO SCH (09:11)
[2016-03-10] MEDS: amLODIPine 5 MG TAB PO SCH (09:11)
[2016-03-10] MEDS: MULTIVITAMINS, THERA 1 EACH TAB PO SCH (09:11)
[2016-03-10] MEDS: ATORVASTATIN 40 MG TAB PO SCH (09:12)
[2016-03-10 09:22] VITALS: PULSE 72; TEMP 97.1
[2016-03-10 13:04] VITALS: BP 125/62
--- NOTE | 2016-03-10 13:10 | P.PN ---
Progress Note - Text I spoke to Dr. Lamonte Jurado. He reviewed the chart in his office. There is no documentation of atrial fibrillation anywhere. We do not have documentation of A. fib here in the hospital either at this time I would recommend antiplatelet agents such as Plavix along with atorvastatin 40 mg a day, antihypertensive therapy and consideration for implantation of a loop monitor. I did review his results of the 2-D echo
--- NOTE | 2016-03-10 15:30 | P.DS ---
Providers Date of admission: 03/07/16 17:12 Attending physician: Elio Jurado Consults: 03/08/16 16:00 Consult Physician Urgent Consulting Provider: Shazia Goss Consult Reason/Comments: abnormal echo Do you want consulting provider notified?: Yes Primary care physician: Elio Jurado Hospital Course: 86 year gentleman is admitted to the hospital with left-sided weakness. Patient apparently had an incident where 3 weeks ago he was not able to speak was noted to have some mild left-sided weakness. Patient was seen by a neurologist out of the [facility] MRI of the brain was ordered but patient was not able to obtain it as patient has severe scoliosis. Patient was admitted was noted to have left-sided weakness strength was about 3- 4 out of 5 no cranial abnormalities were noted. A carotid Doppler did not show any significant stenosis. EKG did not reveal atrial fibrillation. Patient was maintained on telemetry no occult atrial fibrillation was noted. Patient however was having very cardia that is asymptomatic. A doctor casing wringer operator has seen the patient patient is recommended to have outpatient loop recorder placement. Patient apparently has had a GI bleed in the past with aspirin therapy. Plavix and atorvastatin were started. With a previous GI bleed in mind patient was started on omeprazole with Plavix appendectomy. Discharge diagnoses #1 subacute CVA to the right MCA region with left-sided weakness #2 history of GI bleed #3 disability #4 apparently there is some remote history of atrial fibrillation #5 recent cholecystectomy 2 #6 hypertension #7 prostate cancer Lungs good air entry clear to auscultation para graft heart slightly irregular rhythm with a systolic murmur best appreciated at the aortic area Dementia soft nontender no organomegaly Neurologic exam on the left side strength is 3 out of 5 right side 5 out of 5 cranial nerves II-12 grossly intact no distended kinesia is noted Medications were reconciled patient is discharged in a stable condition to group home. Patient Condition at Discharge: Stable Plan - Discharge Summary Discharge Medication List Gluc/Kt-MSM#1/C/Francisco/Adrian/Bor [Glucosamine-Chondroitin Tablet] 1 tab PO BID 04/27 [History] L.acidoph,Paracasei, B.lactis [Probiotic] 1 cap PO DAILY 01/15/16 [History] amLODIPine BESYLATE/BENAZEPRIL [Lotrel 5-10 mg Capsule] 1 cap PO BID 01/15/16 [ History] Melatonin 3 mg PO HS tablet 01/18/16 [Rx] Acetaminophen Tab [Tylenol] 1,000 mg PO BID PRN 03/07/16 [History] Fish Oil/Dha/Epa [Fish Oil 1,200 mg Fish Oil] 1 cap PO DAILY 03/07/16 [History] Multivitamin [Men's Multi-Vitamin] 1 tab PO DAILY 03/07/16 [History] Muscle Relaxer 1 tab PO HS PRN 03/07/16 [History] Polyethylene Glycol 3350 [Miralax] 17 gm PO DAILY PRN 03/07/16 [History] Atorvastatin [Lipitor] 40 mg PO DAILY tab 03/10/16 [Rx] Clopidogrel [Plavix] 75 mg PO DAILY tab 03/10/16 [Rx] Follow up Appointment(s)/Referral(s): Elio Jurado MD [Primary Care Provider] - 1-2 days Carlos Enrique Morocho MD [STAFF PHYSICIAN] - 1 Week Edson Montilla MD [STAFF PHYSICIAN] - 1 Week Discharge Disposition: TRANSFER TO SNF/ECF
== END 2016-03-10 16:57 | DRG 65 ==
LOC: EC 14:43 → 6SEL 17:12
PROVIDERS: ADMIT Family Medicine; ATTEND Family Medicine
DX: I63.8 Other cerebral infarction (principal); G81.94 Hemiplegia, unspecified affecting left nondominant side; E87.5 Hyperkalemia; M41.9 Scoliosis, unspecified; R47.01 Aphasia; I48.0 Paroxysmal atrial fibrillation; I10 Essential (primary) hypertension; R29.704 NIHSS score 4; R93.1 Abnormal findings on diagnostic imaging of heart and coronary circulation; I44.0 Atrioventricular block, first degree; I49.3 Ventricular premature depolarization; I49.1 Atrial premature depolarization; R60.0 Localized edema; M25.50 Pain in unspecified joint; R33.9 Retention of urine, unspecified; R01.1 Cardiac murmur, unspecified; R26.2 Difficulty in walking, not elsewhere classified; H91.90 Unspecified hearing loss, unspecified ear; Z88.6 Allergy status to analgesic agent; Z79.899 Other long term (current) drug therapy; Z90.49 Acquired absence of other specified parts of digestive tract; Z98.890 Other specified postprocedural states; Z90.79 Acquired absence of other genital organ(s); Z96.659 Presence of unspecified artificial knee joint; Z85.46 Personal history of malignant neoplasm of prostate; Z87.19 Personal history of other diseases of the digestive system
CPT/HCPCS: 36415; 70450; 71020; 80048; 80053; 80061; 81003; 82550; 82553; 83090; 83735; 84484; 85025; 85610; 85730; 93005; 93306; 93880; 93970; 99285

== ENCOUNTER 2016-04-06 12:25 | Day surgery (SDC) | payer MEDICARE, BC ==
[2016-04-05 08:45] VITALS: BMI 24.7
[~2016-04-06 12:25] MED LIST: SODIUM CHLORIDE 0.9% 1,000 ML IV SCH; ceFAZolin 2 GM in SODIUM CHLORIDE 0.9% 100 ML IVPB ONE
[2016-04-06 13:16] VITALS: RESP 16; TEMP 97.9
[2016-04-06] MEDS ORDERED: LIDOCAINE 2% INJ 20 MG/ML SQ ONE (16:27)
--- NOTE | 2016-04-06 16:38 | P.PCN ---
Preoperative Diagnosis: Loop monitor implant Primary physicians: Dr. Elio Jurado Product Applications Scientist: Dr. Mohan Indication: Recurrent CVA, no documented atrial fibrillation, no significant carotid stenosis Patient was brought to the EP lab in a fasting state. Written informed consent was obtained prior to the procedure. The left pectoral area was prepped and draped per protocol. Intravenous antibiotic was administered preoperatively. A subcutaneous Loop monitor was implanted successfully and the wound was closed per protocol. The device was programmed to detect significant tino- arrhythmic and tachy-arrhythmic events, per protocol. Device and programming details: Program for detection of bradycardia, tachycardia and atrial fibrillation Procedure was performed under local anesthesia No sedatives or IV medications given other than IV antibiotics
--- NOTE | 2016-04-06 16:57 | LTR ---
April 06, 2016 RE: Lan Whitman (1930) Dear Elio, I had the pleasure of seeing Mr. Lan Whitman in electrophysiology followup. As you know, Mr. Whitman has a history of recurrent CVA without any documented atrial fibrillation. He underwent a loop monitor implantation to see if he has silent atrial fibrillation that could explain his neurologic events. His carotid study did not show any significant stenosis. I will send you a follow-up note if we detect atrial fibrillation. Thank you for entrusting me with the care of your patient. Sincerely, TYE MENSAH MD
[2016-04-06 17:25] VITALS: BP 159/89; PULSE 75
== END 2016-04-06 17:26 ==
LOC: CATHEP 12:25
PROVIDERS: ATTEND Internal Medicine Clinical Cardiac Electrophysiology
DX: I69.354 Hemiplegia and hemiparesis following cerebral infarction affecting left non-dominant side (principal); I10 Essential (primary) hypertension; Z82.49 Family history of ischemic heart disease and other diseases of the circulatory system; Z79.02 Long term (current) use of antithrombotics/antiplatelets; Z79.899 Other long term (current) drug therapy; Z88.8 Allergy status to other drugs, medicaments and biological substances
CPT/HCPCS: 33282; C1764; J2001; J0690

== ENCOUNTER 2016-05-01 06:43 | Inpatient (IN) | payer MEDICARE, BC ==
[2016-05-01 07:29] LABS: Glucose,Whole Blood 92 mg/dL (75-99)
[2016-05-01] MEDS ORDERED: SODIUM CHLORIDE 0.9% 1,000 ML IV STA (07:33)
--- NOTE | 2016-05-01 07:38 | ED ---
General Adult HPI - General Chief complaint: Weakness Stated complaint: weakness Time Seen by Provider: 05/01/16 07:05 Source: patient, family, EMS, RN notes reviewed Mode of arrival: EMS Limitations: physical limitation - History of Present Illness Initial comments: Patient is a pleasant 86-year-old male presenting to the emergency department with left-sided weakness. Patient did have a stroke in the being of February with left-sided weakness. Patient went to bed between 8:30 and 10:30 last night. Patient woke this morning with shaking on his left side. Patient states it was between 5 and 7 minutes. Patient has had increased weakness on his left arm and left leg since that time. Patient's previous stroke was also affected the side however he states weakness is worse. Patient states he was able to fully lift his arm however now is not able to. No confusion. Patient has had some mild shaking previously however not as intense or as long as this. - Related Data Home Medications Medication Instructions Recorded Confirmed Gluc/Kt-MSM#1/C/Francisco/Adrian/Bor 1 tab PO BID@0900,2100 01/15/16 05/01/16 [Glucosamine-Chondroitin Tablet] amLODIPine BESYLATE/BENAZEPRIL 1 cap PO BID@0900,2100 01/15/16 05/01/16 [Lotrel 5-10 mg Capsule] Acetaminophen Tab [Tylenol] 1,000 mg PO BID PRN 03/07/16 05/01/16 Multivitamin [Men's Multi-Vitamin] 1 tab PO DAILY@0900 03/07/16 05/01/16 Polyethylene Glycol 3350 [Miralax] 17 gm PO DAILY@0600 03/07/16 05/01/16 Methocarbamol [Robaxin] 500 mg PO Q6HR PRN 04/05/16 05/01/16 Clopidogrel [Plavix] 75 mg PO DAILY@0900 05/01/16 05/01/16 Krill Oil 1,000 mg PO DAILY@0900 05/01/16 05/01/16 Lactobacillus Acidophilus 1 cap PO DAILY@0900 05/01/16 05/01/16 [Florajen] Lactose-Reduced Food [Ensure Plus] 1 can PO DAILY@1500 05/01/16 05/01/16 Omeprazole [PriLOSEC] 20 mg PO DAILY@0600 05/01/16 05/01/16 Previous Rx's Medication Instructions Recorded Melatonin 3 mg PO HS tablet 01/18/16 Allergies Allergy/AdvReac Type Severity Reaction Status Date / Time aspirin AdvReac Severe Unknown Verified 05/01/16 07:44 Review of Systems ROS Statement: Those systems with pertinent positive or pertinent negative responses have been documented in the HPI. ROS Other: All systems not noted in ROS Statement are negative. Constitutional: Denies: fever Eyes: Denies: eye pain ENT: Denies: ear pain Respiratory: Denies: cough Cardiovascular: Denies: chest pain Endocrine: Denies: fatigue Gastrointestinal: Denies: abdominal pain Genitourinary: Denies: dysuria Skin: Denies: lesions Neurological: Reports: weakness. Denies: headache Past Medical History Past Medical History: Atrial Fibrillation, Cancer, CVA/TIA, Hypertension, Prostate Disorder Additional Past Medical History / Comment(s): prostate cancer, wheelchair- transfer with help, in [facility] for PT, CVA with left side weakness, scoliosis, wearing depends for urinary incontinence History of Any Multi-Drug Resistant Organisms: None Reported Past Surgical History: Back Surgery, Cholecystectomy, Hernia Repair, Orthopedic Surgery, Prostate Surgery Additional Past Surgical History / Comment(s): left knee replacement, strangulated hernia repair, prostatectomy. laminectomy, surgery for "torn kidney ", Past Anesthesia/Blood Transfusion Reactions: No Reported Reaction Past Psychological History: No Psychological Hx Reported Smoking Status: Never smoker Past Alcohol Use History: None Reported Past Drug Use History: None Reported - Past Family History Mother Family Medical History: No Reported History Sister(s) Family Medical History: Deep Vein Thrombosis (DVT) General Exam Limitations: physical limitation General appearance: alert, in no apparent distress Head exam: Present: atraumatic Eye exam: Present: normal appearance, PERRL ENT exam: Present: normal oropharynx Neck exam: Present: normal inspection Respiratory exam: Present: normal lung sounds bilaterally Cardiovascular Exam: Present: regular rate, normal rhythm, systolic murmur GI/Abdominal exam: Present: soft. Absent: tenderness Extremities exam: Present: normal inspection Neurological exam: Present: alert, oriented X3, CN II-XII intact Expanded Patient oriented to: Present: person, place, time Speech: Present: fluid speech Sensory exam: Upper Extremity Light Touch: Normal, Lower Extremity Light Touch: Normal Motor strength exam: RUE: 5, LUE: 3, RLE: 5, LLE: 3 Eye Response: (4) open spontaneously Motor Response: (6) obeys commands Verbal Response: (5) oriented Psychiatric exam: Present: normal affect, normal mood Skin exam: Absent: rash Course Vital Signs 05/01/16 05/01/16 05/01/16 06:47 07:55 08:46 Temperature 97.5 F L Pulse Rate 63 92 86 Respiratory 16 Rate Blood Pressure 157/76 139/89 117/73 O2 Sat by Pulse 97 Oximetry 05/01/16 05/01/16 09:46 09:52 Temperature 97.2 F L Pulse Rate 82 Respiratory 18 Rate Blood Pressure 112/73 O2 Sat by Pulse Oximetry EKG Findings - EKG Comments: EKG Findings:: Sinus rhythm at 92. First-degree AV block with a ID of [id number]. QRS 100. QT 346. QTc 450. Normal axis. Normal QRS. Frequent PVCs. No acute ST change. Medical Decision Making - Medical Decision Making Patient reevaluated and updated. Patient states he cannot do MRI second to his scoliosis. Computed tomography scan with IV contrast will be ordered. Case discussed in detail with Dr. Rios, who will admit for Dr. Jurado who patient states is the primary care physician. - Lab Data Result diagrams: 05/01/16 07:05 05/01/16 07:05 Lab Results 05/01/16 05/01/16 05/01/16 Range/Units 06:48 07:05 07:05 WBC 6.8 (3.8-10.6) k/uL RBC 4.68 (4.30-5.90) m/uL Hgb 14.3 (13.0-17.5) gm/dL Hct 43.1 (39.0-53.0) % MCV 92.0 (80.0-100.0) fL MCH 30.6 (25.0-35.0) pg MCHC 33.3 (31.0-37.0) g/dL RDW 13.6 (11.5-15.5) % Plt Count 227 (150-450) k/uL Neutrophils % 62 % Lymphocytes % 26 % Monocytes % 7 % Eosinophils % 2 % Basophils % 1 % Neutrophils # 4.2 (1.3-7.7) k/uL Lymphocytes # 1.8 (1.0-4.8) k/uL Monocytes # 0.5 (0-1.0) k/uL Eosinophils # 0.1 (0-0.7) k/uL Basophils # 0.1 (0-0.2) k/uL PT (9.0-12.0) sec INR (<1.1) APTT (22.0-30.0) sec Sodium (137-145) mmol/L Potassium (3.5-5.1) mmol/L Chloride (98-107) mmol/L Carbon Dioxide (22-30) mmol/L Anion Gap mmol/L BUN (9-20) mg/dL Creatinine (0.66-1.25) mg/dL Est GFR (MDRD) Af Amer (>60 ml/min/1.73 sqM) Est GFR (MDRD) Non-Af (>60 ml/min/1.73 sqM) Glucose (74-99) mg/dL POC Glucose (mg/dL) 92 (75-99) mg/dL POC Glu Toddler Teacher ID Nicolle Estrada Calcium (8.4-10.2) mg/dL Total Bilirubin (0.2-1.3) mg/dL AST (17-59) U/L ALT (21-72) U/L Alkaline Phosphatase (38-126) U/L Total Creatine Kinase 37 L (55-170) U/L CK-MB (CK-2) 1.6 (0.0-2.4) ng/mL CK-MB (CK-2) Rel Index 4.3 Troponin I 0.016 (0.000-0.034) ng/mL Total Protein (6.3-8.2) g/dL Albumin (3.5-5.0) g/dL 05/01/16 05/01/16 Range/Units 07:05 07:05 WBC (3.8-10.6) k/uL RBC (4.30-5.90) m/uL Hgb (13.0-17.5) gm/dL Hct (39.0-53.0) % MCV (80.0-100.0) fL MCH (25.0-35.0) pg MCHC (31.0-37.0) g/dL RDW (11.5-15.5) % Plt Count (150-450) k/uL Neutrophils % % Lymphocytes % % Monocytes % % Eosinophils % % Basophils % % Neutrophils # (1.3-7.7) k/uL Lymphocytes # (1.0-4.8) k/uL Monocytes # (0-1.0) k/uL Eosinophils # (0-0.7) k/uL Basophils # (0-0.2) k/uL PT 10.6 (9.0-12.0) sec INR 1.0 (<1.1) APTT 24.4 (22.0-30.0) sec Sodium 138 (137-145) mmol/L Potassium 4.1 (3.5-5.1) mmol/L Chloride 101 (98-107) mmol/L Carbon Dioxide 29 (22-30) mmol/L Anion Gap 8 mmol/L BUN 17 (9-20) mg/dL Creatinine 0.81 (0.66-1.25) mg/dL Est GFR (MDRD) Af Amer >60 (>60 ml/min/1.73 sqM) Est GFR (MDRD) Non-Af >60 (>60 ml/min/1.73 sqM) Glucose 93 (74-99) mg/dL POC Glucose (mg/dL) (75-99) mg/dL POC Glu Toddler Teacher ID Calcium 9.4 (8.4-10.2) mg/dL Total Bilirubin 0.8 (0.2-1.3) mg/dL AST 19 (17-59) U/L ALT 23 (21-72) U/L Alkaline Phosphatase 97 (38-126) U/L Total Creatine Kinase (55-170) U/L CK-MB (CK-2) (0.0-2.4) ng/mL CK-MB (CK-2) Rel Index Troponin I (0.000-0.034) ng/mL Total Protein 6.7 (6.3-8.2) g/dL Albumin 3.8 (3.5-5.0) g/dL - Radiology Data Radiology results: image reviewed (Computed tomography scan of the brain does show abnormal high right frontal lobe that presents with more local mass effect/ edema. Cannot exclude primary mass/neoplasm. Two-view chest x-ray shows no acute process.) Disposition Clinical Impression: CVA (cerebral vascular accident) Disposition: ADMITTED IP TO THIS HOSP
[2016-05-01 07:52] LABS: Basophils # (A) 0.1 k/uL (0-0.2); Basophils % (A) 1 %; CH 30.9; CHCM 33.7; Eosinophils # (A) 0.1 k/uL (0-0.7); Eosinophils % (A) 2 %; HCT 43.1 % (39.0-53.0); HDW 2.36; HGB 14.3 gm/dL (13.0-17.5); Luc # (Auto) 0.15; Luc % (Auto) 2; Lymphocytes # (A) 1.8 k/uL (1.0-4.8); Lymphocytes % (A) 26 %; MCH 30.6 pg (25.0-35.0); MCHC 33.3 g/dL (31.0-37.0); Mean Platelet Volume 7.5; Monocytes # (A) 0.5 k/uL (0-1.0); Monocytes % (A) 7 %; Neutrophils # (A) 4.2 k/uL (1.3-7.7); Neutrophils % (A) 62 %; RBC 4.68 m/uL (4.30-5.90); RDW 13.6 % (11.5-15.5); WBC 6.8 k/uL (3.8-10.6); WBC (Perox) 6.89
[2016-05-01 08:01] LABS: ALT 23 U/L (21-72); AST 19 U/L (17-59); Alkaline Phosphatase 97 U/L (38-126); Anion Gap 8 mmol/L; Blood Urea Nitrogen 17 mg/dL (9-20); Calcium 9.4 mg/dL (8.4-10.2); Carbon Dioxide 29 mmol/L (22-30); Chloride 101 mmol/L (98-107); Glucose 93 mg/dL (74-99); Non-African American GFR(MDRD) >60 (>60 ml/min/1.73 sqM); Partial Thromboplastin Time 24.4 sec (22.0-30.0); Potassium 4.1 mmol/L (3.5-5.1); Prothrombin Time 10.6 sec (9.0-12.0); Sodium 138 mmol/L (137-145); Total Bilirubin 0.8 mg/dL (0.2-1.3); Total Protein 6.7 g/dL (6.3-8.2)
--- NOTE | 2016-05-01 08:18 | XR ---
EXAMINATION TYPE: XR chest 2V DATE OF EXAM: 05/01/2016 8:11 AM COMPARISON: Prior chest x-ray March 07, 2016 HISTORY: Atrial fibrillation. TECHNIQUE: Frontal and lateral views of the chest are obtained. FINDINGS: There is no focal air space opacity, pleural effusion, or pneumothorax seen. The cardiac silhouette size is within normal limits. There is eventration of the anterior aspect right hemidiaphr agm redemonstrated. There is atherosclerotic change in the aortic knob. A loop recorder overlies the anterior left chest wall. The osseous structures are demineralized. Exaggerated thoracic kyphosis wit h bridging osteophytes redemonstrated. Cholecystectomy clips are seen on lateral view. There is scoli otic curvature or curved positioning of patient redemonstrated centered in the upper lumbar spine. IMPRESSION: No acute cardiopulmonary process. No significant change from prior study.
[2016-05-01 08:25] LABS: Creatine Kinase MB 1.6 ng/mL (0.0-2.4); Troponin I 0.016 ng/mL (0.000-0.034)
--- NOTE | 2016-05-01 08:47 | CT ---
EXAMINATION TYPE: CT brain wo con DATE OF EXAM: 05/01/2016 8:30 AM HISTORY: Patient complains of increasing left side weakness. Patient has a history of prior stroke a ffecting the left side. CT DLP: 595 mGycm. Automated Exposure Control for Dose Reduction was Utilized. TECHNIQUE: CT scan of the head is performed without contrast. COMPARISON: CT brain March 07, 2016 FINDINGS: There is no acute intracranial hemorrhage or midline shift identified. There is diffuse v entricular and sulcal prominence consistent with diffuse age-related cerebral atrophy. There is low- attenuation in the periventricular white matter consistent with chronic small vessel ischemic change. There is redemonstration of vague area of hyperdensity with surrounding white matter hypodensity in the high right frontal lobe. Findings are now not consistent with progression of infarction. Underlyi ng mass lesion or neoplasm needs to BE considered with associated vasogenic edema as there is more shrestha lcal effacement superiorly seen on current study. The globes are intact and the visualized sinuses wh ite matter are clear. IMPRESSION: No acute intracranial hemorrhage or midline shift. There is mild diffuse age-related ce rebral atrophy and chronic small vessel ischemic change redemonstrated. There is abnormality high ri ght frontal lobe that remains present with more local mass effect or edema noted. Evolving subacute i nfarct would expect to have improved since prior study, primary mass or neoplasm is favored. Advise c ontrast enhanced CT and/or MRI follow-up.
[2016-05-01] MEDS ORDERED: RX INFO: IV CONTRAST WAS GIVEN 1 EACH MISC MISCELLANE PRN (10:08)
[2016-05-01] MEDS ORDERED: SODIUM CHLORIDE 0.9% 1,000 ML IV SCH (10:15)
--- NOTE | 2016-05-01 11:37 | CT ---
EXAMINATION TYPE: CT brain w con DATE OF EXAM: 05/01/2016 11:28 AM COMPARISON: NONE HISTORY: Patient complains of left side weakness. Abnormal brain ct without done today. CT DLP: 862.9 mGycm Automated exposure control for dose reduction was used. CONTRAST: CT scan of the head is performed with IV Contrast, patient injected with 100 mL of Omnipaque 300. FINDINGS: There is large area of abnormal density seen in the right parietal and frontal lobe appears to abut t he interhemispheric fissure. No significant enhancement. There is surrounding vasogenic edema. Intrac ranial neoplasm suspected. No midline shift. Mild generalized degenerative change.. IMPRESSION: Large area of abnormal density in the right frontal and parietal lobe abutting the anterior interhemi spheric fissure with adjacent edema but no midline shift. There is only faint enhancement. Although t his could be related to subacute ischemia neoplasm is also in the differential diagnosis with mild ma ss effect upon the upper margin of the frontal horn on the right. MRI is recommended to assess for ne oplasm. Neoplasm is favored.
[2016-05-01] MEDS ORDERED: METHOCARBAMOL 500 MG TAB PO PRN (20:01)
[2016-05-01] MEDS ORDERED: LORazepam 2 MG/ML SYRINGE IV STA (20:31)
[2016-05-01] MEDS ORDERED: MELATONIN 3 MG TABLET PO SCH (21:00)
[2016-05-01] MEDS ORDERED: NON-FORMULARY DRUG (Gluc/Chon-Msm#1/C/Mang/Bos/Bor [Glucosamine-Chondroitin Tablet] 1 TAB) PO SCH (21:00)
[2016-05-01] MEDS: amLODIPine 5 MG TAB PO SCH (21:47)
[2016-05-01] MEDS: ACETAMINOPHEN TAB 500 MG TAB PO PRN (21:47)
[2016-05-01] MEDS: LISINOPRIL 10 MG TAB PO SCH (21:47)
[2016-05-02] MEDS: MELATONIN 3 MG TABLET PO SCH ×2 (00:03→23:34)
[2016-05-02 06:37] LABS: Cholesterol 139 mg/dL (<200); HDL Cholesterol 55 mg/dL (40-60); Triglycerides 69 mg/dL (<150)
[2016-05-02] MEDS: PANTOPRAZOLE 40 MG TABLET PO SCH (06:43)
[2016-05-02] MEDS ORDERED: KRILL OIL 1000 MG PO SCH (09:00)
--- NOTE | 2016-05-02 09:17 | CONS ---
DATE OF CONSULTATION: 05/01/2016 CHIEF COMPLAINT: Left-sided weakness. HISTORY OF PRESENT ILLNESS: Mr. Whitman is a pleasant, 86-year-old male who is being evaluated today on 05/01/2016 by the neurology service per the request of Dr. Elio Jurado for left-sided weakness. The patient was brought into [facility] emergency room for worsening weakness on the left side. The patient has history of left-sided weakness, which he states is due to a previous stroke. The patient does have a history of atrial fibrillation, but he is not on any anticoagulation therapy. He is on Plavix 75 mg daily. He denies any lateralizing numbness or tingling. A CT scan of the brain was done, which showed hypoattenuation in the right frontal region, but there was questionable mass effect, which would not be consistent with a stroke. This has increased in size when compared to his 03/07/2016 CT scan of the brain. A repeat CT scan of the brain was done with contrast, which did show faint enhancement, which would again be not consistent with an ischemic event. I did review his laboratory work-up, which showed a normal CBC, INR, comprehensive metabolic profile, and cardiac enzymes. The patient was admitted for further work-up and management. At the time of my evaluation, he is lying in his bed and appears to be in no acute distress. He denies any changes in his left right-sided weakness since his admission. He denies any swallowing difficulties. PAST MEDICAL HISTORY: Atrial fibrillation, prostate cancer, stroke. Hypertension, severe scoliosis, urinary incontinence, history of lumbar spine surgery, cholecystectomy, hernia repair, prostate surgery, left knee replacement surgery, renal surgery. SOCIAL HISTORY: He denies any tobacco, alcohol or drug use. FAMILY HISTORY: Positive for deep venous thrombosis. HOME MEDICATIONS: Reviewed in the chart. ALLERGIES: ASPIRIN. REVIEW OF SYSTEMS: CONSTITUTIONAL: Negative. EYES: Negative. ENT: Positive for chronic diminished hearing. CARDIOVASCULAR: Negative. RESPIRATORY: Negative. NEUROLOGICAL: As mentioned above. GASTROINTESTINAL: Positive for occasional heartburn. GENITOURINARY: Positive for urinary incontinence. MUSCULOSKELETAL: Positive for occasional joint pain. PSYCHIATRIC: Negative. Dermatological: Negative. ENDOCRINE: Negative. PHYSICAL EXAM: Vital signs show a temperature of 97.0, pulse 63, respirations 16, blood pressure 141/69. GENERAL APPEARANCE: The patient is a thin, elderly male who appears to be in no acute distress. HEENT: Normocephalic, atraumatic, no facial asymmetry is seen. Extraocular muscles are intact. Neck is supple with no masses felt. CARDIOVASCULAR: Regular rate and rhythm. ABDOMEN: Nontender, nondistended. EXTREMITIES: No edema or clubbing. NEUROLOGICAL EXAM: The patient is awake and oriented x3. Speech and language are normal. Strength is 3+/5 on the left upper extremity, 3 out of 5 on the left lower extremity, and 5-/5 on the right upper and lower extremity. Sensory exam was normal to light touch in all 4 extremities. No facial asymmetry is seen on cranial nerve testing. No seizure-like activity is seen. IMPRESSION: 1. Left hemiparesis. 2. Abnormal CT scan of the brain with a questionable mass. 3. Atrial fibrillation. 4. Questionable seizure. RECOMMENDATIONS: The patient is having worsening left hemiparesis, but it is unclear if this is of an acute onset. As mentioned above, a CT scan of the brain showed some mass effect along with some faint contrast enhancement. A neoplastic etiology needs to be ruled out. He did have some jerking activity in his left upper extremity but this could have been related to weakness as he was trying to lift his arm up when his arm started shaking. An EEG will be ordered. I will also order an MRI of the brain with and without contrast to check for any evidence of intracranial masses. He does report some claustrophobia and I will pretreat him with Ativan IV. I will order a fasting lipid panel and serum homocysteine level. Continue Plavix for antiplatelet therapy at this time. I will consult physical therapy to evaluate and treat for his left-sided weakness. Continue neuro checks. I will continue to follow with you. Further recommendations to follow. Thank you for allowing me to participate in the care of your patient. If you have any questions, please feel free to contact me.
[2016-05-02] MEDS: amLODIPine 5 MG TAB PO SCH ×2 (09:54→20:56)
[2016-05-02] MEDS: LACTOBACILLUS ACIDOPH & BULGAR 1 EACH PACKET PO SCH (09:54)
[2016-05-02] MEDS: CLOPIDOGREL 75 MG TAB PO SCH (09:54)
[2016-05-02] MEDS: POLYETHYLENE GLYCOL 3350 17 GM POWD.PACK PO SCH (09:54)
[2016-05-02] MEDS: MULTIVITAMINS, THERA 1 EACH TAB PO SCH (09:55)
[2016-05-02] MEDS: LISINOPRIL 10 MG TAB PO SCH ×2 (09:55→20:56)
[2016-05-02] MEDS ORDERED: LORazepam 2 MG/ML SYRINGE IV STA (11:27)
--- NOTE | 2016-05-02 12:38 | HP ---
DATE OF ADMISSION: DATE OF SERVICE: 05/01/2016 I am covering for Dr. Elio Jurado. CHIEF COMPLAINT: Weakness. HISTORY OF PRESENT ILLNESS: This 86-year-old gentleman with a past medical history of CVA, TIA, GERD, hypertension, prostate disorder, cholecystectomy, history of depression, being followed by Dr. Elio Jurado in the outpatient setting recently had a stroke involving the right MCA territory causing left-sided weakness and patient was sent to rehab at [facility] and while in [facility] the patient was noted to have left-sided weakness which was profound this morning and patient also had some shaky movement of the arm also according to the family which lasted for some time. The patient had increasing weakness of the left upper and lower limbs and the patient was taken to [facility] and admitted for further evaluation. Patient also mildly confused and unable to. Mostly the history is taken from my discussion with staff as well as review of the chart at this time. A CAT scan of the brain was done on admission in the ER which showed mild diffuse age related cerebral atrophy and abnormally high right different lobe. Abnormality in the right frontal lobe causing more local mass effect or edema was also noted. Subacute infarct is not completely ruled out. Please note that during the previous admission MRI could not be done because severe scoliosis. A repeat neurology evaluation in progress. Repeat CAT scan demonstrated large area of abnormal density. There is no history of fever rigors or chills at this time. PAST MEDICAL HISTORY: History of recent parietal stroke, history of gastroesophageal reflux disease, GI bleeds, hypertension, prostate disorder, history of cholecystectomy, back surgery, history of depression. Medications prior to admission include home medication: 1. Robaxin 500 mg q.6 p.r.n. 2. Lotrel 5/10 p.o. b.i.d. 3. Tylenol 1000 mg b.i.d. p.r.n. 5. Multivitamins 1 p.o. daily. 6. MiraLAX 17 grams daily. 7. Prilosec 20 mg daily. 8. Melatonin 3 mg p.o. q.h.s. 9. Florigen 1 capsule daily. 10. Plavix 75 mg daily. 11. Krill Oil 1000 mg daily. 12. Ensure 1 p.o. daily. ALLERGIES: ASPIRIN. FAMILY HISTORY: No history of heart disease or strokes in the family. SOCIAL HISTORY: No history of smoking, no history of alcohol. REVIEW OF SYSTEMS: ENT: Diminishing hearing. Diminished vision. CARDIOVASCULAR: No angina. RESPIRATORY: As mentioned earlier. GI: No nausea. : No dysuria. NERVOUS SYSTEM: As mentioned earlier. ALLERGY/IMMUNOLOGY: No asthma or hayfever. MUSCULOSKELETAL: As mentioned earlier. HEMATOLOGY/ONCOLOGY: No history of anemia. ENDOCRINE: As mentioned earlier. Constitutional As mentioned earlier. DERMATOLOGY: Negative. RHEUMATOLOGY: Negative. PSYCHIATRY: As mentioned earlier. PHYSICAL EXAMINATION: Alert and oriented x2. Pulse 58, blood pressure 142/62, respirations 16, temperature 97.4, pulse ox 97% on room air. HEENT: Conjunctivae normal. Oral mucosa moist. NECK: No jugular venous distention. No carotid bruit. No lymph node enlargement. CARDIOVASCULAR: S1 and S2, muffled. No S3, no S4. RESPIRATORY: Breath sounds diminished at the bases. A few scattered rhonchi, no crackles. ABDOMEN: Soft, Nontender. No mass palpable. LEGS: No edema, no swelling. NERVOUS SYSTEM: Higher function as mentioned. Moves all four limbs. Definite weakness on the left side present. LYMPHATIC: No lymphadenopathy in the neck, axillae or groin. SKIN: No ulcer, rash or bleeding. JOINTS: No acute deforming arthropathy. CBC within normal limits. Otherwise . CT scan noted and personally reviewed. ASSESSMENT: 1. Increased weakness of the left side, rule out subacute stroke involving the right hemisphere, rule out focal seizures. 2. Significant lesion in the right hemisphere, rule out malignancy. 3. History of recent cerebrovascular accident. 4. History of gastroesophageal reflux disease. 5. History of gastrointestinal bleeds. 6. Hypertension. 7. History of prostate disorder. 8. History of cholecystectomy. 9. History of scoliosis. 10. History of back surgery. 11. History of degenerative joint disease. 12. History of depression, not otherwise specified. 13. FULL CODE. RECOMMENDATIONS AND DISCUSSION: In this 86-year-old gentleman who presented with multiple complex medical issues, will monitor the patient closely. Continue the current medications. Continue symptomatic treatment. Will obtain a Neurology evaluation. As mentioned earlier, the CAT scan was personally reviewed and MRA could not be done during the last time. The focal seizures are a consideration because of the history of localized focal repetitive movements. We will continue to monitor. Prognosis guarded because of multiple complex medical issues. Further recommendations to follow. Discussed with the family who understands and agrees. Further recommendations to follow. MTDD
[2016-05-02] MEDS ORDERED: NON-FORMULARY DRUG (Lactose-Reduced Food [Ensure Plus] 1 CAN) PO SCH (15:00)
--- NOTE | 2016-05-02 17:59 | P.PN ---
Subjective Principal diagnosis: Left hemiparesis This is a pleasant 86-year-old male continuing to be evaluated by the neurology service for progressive left-sided weakness. He was brought to the [place] emergency room for worsening weakness of the left side that it started in February. Initial CT of the brain was done and showed hypoattenuation in the right frontal region, with a questionable mass effect. When compared with CAT scan of 03/07/2016 this had increased in size. The repeat computed tomography scan was done with contrast did show some faint enhancement. Physical therapy has been working with him but he has no progress in the strength of his left upper and lower extremities. He continues to deny any swallowing difficulties. Because of our suspicion of a questionable mass effect and MRI was ordered. When he was taken down for his MRI that was done with some sedation. 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 Therefore, the MRI has not been accomplished. His and son are present at bedside and say that he has a follow-up appointment tomorrow with his neurosurgeon. Objective - Vital Signs Vital signs: Vital Signs Temp 96.9 F L 05/02/16 09:06 Pulse 71 05/02/16 11:15 Resp 18 05/02/16 11:15 BP 111/70 05/02/16 11:15 Pulse Ox 96 05/02/16 11:15 Intake & Output 05/01/16 05/02/16 05/02/16 18:59 06:59 18:59 Intake Total 1216 Output Total 506 1000 403 Balance 710 -1000 -403 Weight 90 kg Intake: Intake, IV Titration 800 Amount Sodium Chloride 0.9% 1, 800 000 ml @ 100 mls/hr IV . Q10H [facility] Rx#:[id number] Oral 416 Output: Urine 500 1000 400 Stool 6 3 Other: Voiding Method Urinal Urinal Urinal Diaper Diaper Diaper # Voids 1 1 # Bowel Movements 1 - Constitutional General appearance: Present: average body habitus, cooperative, no acute distress - EENT Eyes: Present: EOMI, PERRLA. Absent: abnormal pupil, ptosis ENT: Present: hard of hearing - Neck Neck: Absent: normal ROM - Cardiovascular Rhythm: regular - Gastrointestinal General gastrointestinal: Absent: distended, tenderness - Neurologic Neurologic Comment(s): Patient is alert awake and oriented 3. Speech-language are normal. Strength remains 3+ out of 5 and left upper extremity 4 minus out of 5 in the left lower extremity except for dorsiflexion which is nonexistent. Sensory exam was normal to light touch in all 4 extremities. There is no facial asymmetry. No tremors or seizure-like activities are seen. - Labs CBC & Chem 7: 05/01/16 07:05 05/01/16 07:05 Assessment and Plan (1) Left hemiparesis Status: Acute (2) Abnormal computed tomography scan Status: Acute (3) Hypertension Status: Chronic (4) Prostate cancer Status: Chronic Plan: Again his left-sided symptoms are not of acute onset. They have been worsening over the course of the last couple months. As mentioned above his abnormal CT showed some mass affect and some faint enhancement. We tried to perform an MRI of the brain to rule out a neoplastic etiology. This could not be done due to his kyphotic curvature not fitting in the cradle for the brain MRI. I did contact the MRI Center. The technicians had no recommendations for this. I have left a message with our radiologist to see if there are other options. Again his and son do indicate that he has an appointment with his neurosurgeon tomorrow and that may open up options for his imaging. On last exam there was some evidence of jerking movements of the left upper extremity that are not evident today. An EEG has been ordered and the results are pending. He has no history of seizures. He will continue Plavix for antiplatelet therapy. Physical and occupational therapy will continue to follow. continue neurological checks. If the family wishes to make the appointment tomorrow with his neurosurgeon that would be acceptable with the stipulation that the MRI with and without contrast needs to be performed. We would welcome any recommendations from our radiology Department or his neurosurgeon as to how to complete this. I have performed a history and physical on the above patient. I have reviewed the above note, and agree.
--- NOTE | 2016-05-02 18:43 | P.PN ---
Subjective Date of service 05/02/2016. Progress note being dictated for Dr. Rios. Interval history: This 86-year-old gentleman admitted with increased left-sided weakness, ruling out subacute stroke and or focal seizures,significant lesion of the right hemisphere, ruling out malignancy and multiple other medical issues. Maintained on Plavix. Evaluated by neurology, with recommendations noted. EEG results pending. Just returning from MRI ,attempted MRI but unable to lay flat secondary to patient's scoliosis. Patient has a previously scheduled [place] neurosurgeon appointment tomorrow and family therefore requesting patient be discharged tomorrow. No reported seizure activity. Review of systems: HEENT: Denies headache, Denies any dizziness or lightheadedness. Diminished vision, diminished hearing Respiratory: Denies any increased shortness of breath. Cardiac: Denies any chest pain, palpitations. GI: Denies any nausea, vomiting, or diarrhea. Denies any abdominal tenderness. : Denies any dysuria. Psychiatry: Denies any anxiety or depression. Active Medications Acetaminophen (Tylenol Tab) 1,000 mg PO BID PRN PRN Reason: Pain Last Admin: 05/01/16 21:47 Dose: 1,000 mg Amlodipine Besylate (Norvasc) 5 mg PO BID@0900,2100 [facility] Last Admin: 05/02/16 09:54 Dose: 5 mg Clopidogrel Bisulfate (Plavix) 75 mg PO DAILY@0900 [facility] Last Admin: 05/02/16 09:54 Dose: 75 mg Lactobacillus Acidoph/Bulgaricus (Lactinex) 1 each PO DAILY@0900 [facility] Last Admin: 05/02/16 09:54 Dose: 1 each Lisinopril (Zestril) 10 mg PO BID@0900,2100 [facility] Last Admin: 05/02/16 09:55 Dose: 10 mg Melatonin (Melatonin) 6 mg PO HS [facility] Last Admin: 05/02/16 00:03 Dose: 6 mg Methocarbamol (Robaxin) 500 mg PO Q6HR PRN PRN Reason: Muscle Spasm Miscellaneous Information (Rx Info: Iv Contrast Was Given) 1 each MISCELLANE DAILY PRN PRN Reason: Per Protocol Stop: 05/03/16 10:08 Multivitamins (Theragran) 1 each PO DAILY@1200 [facility] Last Admin: 05/02/16 09:55 Dose: 1 each Pantoprazole Sodium (Protonix) 40 mg PO AC-BRKFST [facility] Last Admin: 05/02/16 06:43 Dose: 40 mg Polyethylene Glycol (Miralax) 17 gm PO DAILY@0600 [facility] Last Admin: 05/02/16 09:54 Dose: Not Given Objective - Vital Signs Vital signs: Vital Signs Temp 96.9 F L 05/02/16 09:06 Pulse 71 05/02/16 11:15 Resp 18 05/02/16 11:15 BP 111/70 05/02/16 11:15 Pulse Ox 96 05/02/16 11:15 Intake & Output 05/01/16 05/02/16 05/02/16 18:59 06:59 18:59 Intake Total 1216 Output Total 506 1000 403 Balance 710 -1000 -403 Weight 90 kg Intake: Intake, IV Titration 800 Amount Sodium Chloride 0.9% 1, 800 000 ml @ 100 mls/hr IV . Q10H [facility] Rx#:[id number] Oral 416 Output: Urine 500 1000 400 Stool 6 3 Other: Voiding Method Urinal Urinal Urinal Diaper Diaper Diaper # Voids 1 1 # Bowel Movements 1 - Exam PHYSICAL EXAM: VITAL SIGNS: [As above] GENERAL: [And O 3 ,Sitting up in bed, no acute distress,] HEENT: [Pupils equal conjunctiva normal.] NECK: [Supple, no JVD] RESPIRATORY EFFORT:[Normal] LUNGS: [Bilateral bases diminished, occasional scattered rhonchi throughout] CARDIOVASCULAR[regular S1 and S2, no murmurs rubs or gallops, no edema] GI: [Abdomen soft, nontender, positive bowel sounds.] NEURO: Higher functions as previously mentioned, moves all 4 extremities left upper and lower extremities sided weakness, grade 3/5 power, minimal movement. - Labs CBC & Chem 7: 05/01/16 07:05 05/01/16 07:05 Assessment and Plan Plan: 1. Increasing left-sided weakness, ruling out subacute stroke involving the right hemisphere, rule out focal seizures. 2. [Significant wheezing in the right hemisphere, rule out malignancy]. 3. [History of CVA]. 4. [Gastroesophageal reflux disease]. 5. [History of GI bleed]. 6. [Hypertension]. 7. [Prostate disorder]. 8. Scoliosis 9. History of back surgery 10. Degenerative joint disease 11. History of depression, not otherwise specified Plan: Continue on current medication regime ,monitoring and symptomatic treatment. Possible seizure-like movements previously reported,possible anticonvulsants pending EEG results, defer to neurology. Obtain neurology's clearance; Per family's request, patient to be discharged tomorrow to facilitate appointment with [facility] neurosurgeon as previously scheduled, with further workup to be completed there. Prognosis guarded given multiple complex medical issues. Further recommendations to follow. The impression and plan of care has been dictated as directed. : I performed a H&P examination of this patient and discussed the same with the dictator. I agree with the dictator's note. Any additional findings/opinions/ etc. will be noted.
[2016-05-02] MEDS: ACETAMINOPHEN TAB 500 MG TAB PO PRN (20:56)
--- NOTE | 2016-05-03 05:59 | PN ---
DATE OF SERVICE: 05/02/2016 This 86-year-old gentleman admitted with history of stroke, had a possible CVA or even a mass lesion. Seen and evaluated the patient along with the nurse practitioner. Please refer to nurse practitioner notes and impression documented for further information. The MRI was attempted, could not be done. The patient has appointment with neurosurgery tomorrow. The patient is stable. We will discharge the patient tomorrow to [facility] with further plans to followup with neurosurgery. Prognosis guarded. Had a detailed discussion with the family at the bedside. Family understood and agreed. Further recommendations to follow.
[2016-05-03] MEDS: PANTOPRAZOLE 40 MG TABLET PO SCH (06:54)
[2016-05-03] MEDS: POLYETHYLENE GLYCOL 3350 17 GM POWD.PACK PO SCH (06:54)
[2016-05-03] MEDS: amLODIPine 5 MG TAB PO SCH (08:56)
[2016-05-03] MEDS: LISINOPRIL 10 MG TAB PO SCH (08:56)
[2016-05-03] MEDS: CLOPIDOGREL 75 MG TAB PO SCH (08:56)
[2016-05-03] MEDS: LACTOBACILLUS ACIDOPH & BULGAR 1 EACH PACKET PO SCH ×2 (08:57→09:02)
[2016-05-03 09:05] VITALS: BP 145/63; PULSE 66; RESP 20; TEMP 97
--- NOTE | 2016-05-03 11:39 | DS ---
DATE OF ADMISSION: 05/01/2016 DATE OF DISCHARGE: FINAL DIAGNOSES: 1. Weakness on the left side, which is increasing. Possible subacute stroke in the right hemisphere, rule out neoplasm or focal seizures. 2. Significant lesion on the right hemisphere, rule out malignancy. 3. History of cerebrovascular accident. 4. Gastroesophageal reflux disease. 5. Change in mental status with metabolic encephalopathy, multifactorial, acute. 6. History of gastrointestinal bleed, etiology unknown. 7. Hypertension. 8. Prostate disorder. 9. Scoliosis. 10. History of back surgery. 11. History of degenerative joint disease. 12. History of depression, not otherwise dispensed. 13. FULL CODE. DISCHARGE DISPOSITION: The patient will be transferred to [facility] in a stable condition with guarded prognosis. HISTORY OF PRESENT ILLNESS: This 86-year-old gentleman with a past medical history of multiple medical problems was admitted with weakness on the left side. The patient also had a right frontoparietal lesion. There is some enhancement. The possibility of malignancy is there and the patient and family already had a appointments that have been with the [facility]. Currently, the patient is stable and the patient will be transferred per family's request to [facility] at this time. On exam, vitals are stable. CARDIOVASCULAR SYSTEM: S1, S2, muffled. ABDOMEN: Soft, left hemiparesis is present. The discharge advice: 1. Diet is cardiac. 2. Activity limited until followup. 3. Follow up with Dr. Jollye in 2 to 3 days. 4. CBC in 2 to 3 days. 5. Follow up with Dr. Montilla as advised. 6. Follow up with neurosurgeon as recommended. The medications are: 1. Tylenol 1000 mg p.o. b.i.d. 2. Plavix 75 mg p.o. daily. 3. Glucose-chondroitin 1 p.o. b.i.d. 4. Krill oil 1000 mg p.o. daily. 5. Lactobacillus 1 capsule daily. 6. Ensure Plus 1 daily. 7. Melatonin 6 mg q.h.s. 8. Robaxin 500 mg q.6. 9. Multivitamin 1 p.o. daily. 10. Prilosec 20 mg daily. 11. Celexa 17 gm p.o. daily. Once again, the patient will be discharged in a stable condition with guarded prognosis. MTDD
[2016-05-03] MEDS: MULTIVITAMINS, THERA 1 EACH TAB PO SCH (12:11)
--- NOTE | 2016-05-04 10:37 | EEG ---
DATE OF SERVICE: 05/03/2016 REASON FOR TESTING: Stroke. AGE: 86Y DESCRIPTION OF THE PROCEDURE: This EEG was performed using a 21-channel digital electroencephalograph, following the international 10 to 20 system. DESCRIPTION OF THE RECORDING: From the beginning of the tracing, and with the patient's eyes closed, the background rhythm was mostly consisting of 9 Hz alpha frequency in the posterior occipital leads. No obvious asymmetry is seen. Occasional lead artifacts and movement artifacts are seen. Photic stimulation was performed with a minimal driving response seen. No pathological waves were elicited. More lead artifacts are noticed later in the tracing. Hyperventilation was not performed. The patient remains awake throughout the tracing. No epileptiform discharges were seen. His EKG lead showed an irregularly irregular rhythm with a normal rate. INTERPRETATION: This awake EEG can be considered within normal limits except his EKG lead showed an irregularly irregular rhythm. No epileptiform discharges were seen. The absence of epileptiform discharges does not rule out the diagnosis of epilepsy, therefore, clinical correlation is recommended.
== END 2016-05-03 13:15 | DRG 302 ==
LOC: EC 06:43 → 6SEL 10:06
PROVIDERS: ADMIT Family Medicine; ATTEND Family Medicine
DX: R93.8 Abnormal findings on diagnostic imaging of other specified body structures (principal); G93.41 Metabolic encephalopathy; I63.9 Cerebral infarction, unspecified; I69.354 Hemiplegia and hemiparesis following cerebral infarction affecting left non-dominant side; K21.9 Gastro-esophageal reflux disease without esophagitis; I48.91 Unspecified atrial fibrillation; M41.9 Scoliosis, unspecified; I10 Essential (primary) hypertension; I44.0 Atrioventricular block, first degree; R25.1 Tremor, unspecified; F40.240 Claustrophobia; H54.7 Unspecified visual loss; F32.9 Major depressive disorder, single episode, unspecified; H91.90 Unspecified hearing loss, unspecified ear; R29.705 NIHSS score 5; R32 Unspecified urinary incontinence; M19.90 Unspecified osteoarthritis, unspecified site; N42.9 Disorder of prostate, unspecified; Z90.49 Acquired absence of other specified parts of digestive tract; Z96.652 Presence of left artificial knee joint; Z79.02 Long term (current) use of antithrombotics/antiplatelets; Z85.46 Personal history of malignant neoplasm of prostate; Z88.6 Allergy status to analgesic agent; Z79.899 Other long term (current) drug therapy; Z87.19 Personal history of other diseases of the digestive system; Z82.49 Family history of ischemic heart disease and other diseases of the circulatory system
CPT/HCPCS: 36415; 70450; 70460; 71020; 80053; 80061; 82550; 82553; 83090; 84484; 85025; 85610; 85730; 93005; 95819; 96360; 96361; 99285